=== PATIENT | female | born 1995 | race Caucasian/White ===

== ENCOUNTER → 2019-10-05 15:40 | Outpatient (BNVA) | payer SELFPAY | PROVIDERS: Family Provider Family Medicine; PCP Family Medicine; Visit Provider Nurse Practitioner | DX: J02.9 Acute pharyngitis, unspecified (principal); B37.0 Candidal stomatitis | CPT/HCPCS: 87071; 87880 ==

== ENCOUNTER → 2021-12-07 16:17 | Outpatient (BNVA) | payer SELFPAY | PROVIDERS: Family Provider Family Medicine; Visit Provider Registered Nurse Neonatal Intensive Care | DX: N39.0 Urinary tract infection, site not specified (principal); R39.9 Unspecified symptoms and signs involving the genitourinary system | CPT/HCPCS: 81000; 87086 ==

== ENCOUNTER 2022-01-28 08:31 | Emergency (ER) | payer SELFPAY ==
[2022-01-28 08:58] VITALS: BP 132/82; PULSE 109; RESP 18; TEMP 37; O2SAT 99
[2022-01-28 09:18] VITALS: BP 122/86; PULSE 99; RESP 16; O2SAT 99
--- NOTE | 2022-01-28 09:19 | XR_ITS ---
WS: [id number] Exam: XR chest 1V portable [id number] Date/Time of Exam: 01/28/2022 9:29 AM Reason For Exam: near syncopal episode No priors. Findings: The lungs are clear and fully expanded. Costophrenic angles are sharp. No infiltrates. Bronchovascula r relief appears normal. Cardiac silhouette is unremarkable. Bony elements are intact. XR/XR chest 1V portable [id number] IMPRESSION: Unremarkable chest radiograph.
--- NOTE | 2022-01-28 09:21 | ED_ITS ---
Documented by User: KIRSTIE Suarez 01/29/22 12:40 HPI - General Adult General: Chief complaint: General Medical Stated complaint: BP issues Time Seen by Provider: 01/28/22 08:38 History of Present Illness: Patient is a 26-year-old female comes to the ED wi th near syncopal episode. Episode occurred while at work this morning. She was walking at work and started feeling dizzy, clammy and having heart palpitations. She felt short of breath as well. She checked her pulse at work and it was bouncing around between 100 to 150s. Episode only lasted a couple minutes. Patient states she felt like she was about to pass out, but she did not. She denies any loss of consciousness. Denies any chest pain, nausea/vomiting. Denies any history of anxiety or panic attacks. Here in the ED she says all of her symptoms have resolved and she feels normal. Associated symptoms: Reports palpitations; Deny chest pain, dyspnea, headache(s), nausea, rash or vomiting Review of Systems Const: Denies: fever(s), chills or fatigue Eyes: Denies: change in vision or eye discomfort ENMT: Denies: throat pain, odynophagia, nasal discharge or nasal congestion Card: Reports: palpitations and pre-syncope; Denies: chest pain, edema, swelling of feet/ankles, dyspnea on exertion or orthopnea Resp: Denies: dyspnea, productive cough or non-productive cough GI: Denies: abdominal pain, nausea, vomiting, diarrhea, constipation or hematochezia : Denies: flank pain, dysuria or hematuria Musc: Denies: neck pain, back pain or extremity swelling Skin/Breast: Denies: rash or new lesions Neuro: Denies: headache(s), numbness in extremities or weakness in extremities PFS ED PFSH: Medical History Allergic reaction No pertinent family history Surgical History No pertinent past surgical history Social History Smoking and tobacco status: never smoked Alcohol intake: never Physical Exam Const: COMMON NORMALS: no acute distress, patient oriented x3, healthy appearing and alert GENERAL APPEARANCE: cooperative and comfortable HENMT: COMMON NORMALS: normocephalic HEAD & SCALP: normocephalic MOUTH: Normal oral and palatal mucosa present THROAT: posterior oropharynx normal and uvula midline Eye: COMMON NORMALS: Equal, round and reactive pupils present and conjunctivae normal CONJUNCTIVA: Yes conjunctivae normal PUPIL: Yes Equal, round and reactive pupils present Neck/C-Spine: COMMON NORMALS: supple GENERAL: Yes normal visual inspection Resp: COMMON NORMALS: normal respiratory effort, No retractions, No use of accessory muscles and clear to auscultation bilaterally AUSCULTATION: clear to auscultation bilaterally Cardio: COMMON NORMALS: regular rate, regular rhythm, S1 normal heart sound present, S2 normal heart sound present, No gallops present (Cardio), No clicks present (Cardio), No murmurs present (Cardio) and Peripheral pulses 2+ throughout RATE: regular rate RHYTHM: regular rhythm HEART SOUNDS: S1 normal heart sound present and S2 normal heart sound present PERIPHERAL PULSES: Peripheral pulses 2+ throughout GI: COMMON NORMALS: Normal to inspection, nondistended, normoactive bowel sounds present, Soft to palpation, non-tender and no masses PALPATION: Yes Soft to palpation : COMMON NORMALS: Yes no CVA tenderness BLADDER/KIDNEY EXAM: Yes no CVA tenderness Back/Pelvis: COMMON NORMALS: no CVA tenderness Extremity: COMMON NORMALS: normal to inspection Neuro: COMMON NORMALS: patient oriented x3 SENSORIUM/ORIENTATION: Yes alert GAIT: Yes Normal gait present Skin: GENERAL SKIN EXAM: dry skin Course Vital Signs: Vital signs: Vital Signs Temperature 98.6 F 01/28/22 08:58 Pulse Rate 74 01/28/22 10:45 Respiratory Rate 16 01/28/22 09:18 Blood Pressure 101/60 01/28/22 10:45 Pulse Oximetry 99 01/28/22 09:18 Oxygen Delivery Me thod 01/28/22 08:58 [facility] - General Adult Medical Decision Making Patient is a 26-year-old female comes to the ED with near syncopal episode. Episode occurred while at work this morning. She was walking at work and started feeling dizzy, clammy and having heart palpitations. She felt short of breath as well. She checked her pulse at work and it was bouncing around between 100 to 150s. Episode only lasted a couple minutes. Patient states she felt like she was about to pass out, but she did not. She denies any loss of consciousness. Denies any chest pain, nausea/vomiting. Denies any history of anxiety or panic attacks. Here in the ED she says all of her symptoms have resolved and she feels normal. Vitals are stable. Exam of patient is benign and she appears in no acute distress or pain. CBC and CMP were unremarkable. hCG negative troponin negative. Chest x-ray showed no acute findings. EKG showed normal sinus rhythm with no ST segment elevation depression seen or any other acute findings noted. Patient has not had any similar episodes while here in the ED. She was stable for discharge home and diagnosed with near syncope. She was told to follow-up with her PCP within the next week for reevaluation. Return to ED precautions given. Patient understood and agreed with plan. Lab Data I reviewed the patient's lab results. : 01/28/22 09:30 01/28/22 09:30 Radiology Impressions Chest X-Ray 01/28/22:19 IMPRESSION: Unremarkable chest radiograph. Laboratory Results WBC 8.5 10^3/uL (4.0-10.0) 01/28/22 09:30 RBC 4.51 10^6/uL (4.1-5.3) 01/28/22 09:30 Hgb 13.8 g/dL (11.5-15.3) 01/28/22 09:30 Hct 38.8 % (37.0-47.0) 01/28/22:30 MCV 86.0 fl (81-99) 01/28/22:30 MCH 30.6 pg (28.0-34.0) 01/28/22 09:30 MCHC 35.6 g/dL (30.0-36.0) 01/28/22 09:30 RDW 12.0 % (12.1-15.1) L 01/28/22:30 Plt Count 251 10^3/cmm (130-400) 01/28/22 09:30 MPV 9.7 fL (7.4-10.4) 01/28/22 09:30 Neut % (Auto) 71.7 % 01/28/22 09:30 Lymph % (Auto) 21.1 % 01/28/22 09:30 [place] % (Auto) 5.8 % 01/28/22 09:30 Eos % (Auto) 0.8 % 01/28/22 09:30 Baso % (Auto) 0.2 % 01/28/22:30 Neut # (Auto) 6.11 10^3/uL (1.8-7.7) 01/28/22 09:30 Lymph # (Auto) 1.8 10^3/uL (0.8-4.8) 01/28/22:30 [place] # (Auto) 0.5 10^3/uL (0.2-0.9) 01/28/22:30 Eos # (Auto) 0.1 10^3/uL (0.0-0.8) 01/28/22: Baso # (Auto) 0.0 10^3/uL (0.0-0.1) 01/28/22 09:30 Nucleated RBC % (auto) 0 % 01/28/22: Nucleated RBCs # 0.0 /100WBC 01/28/22:30 Sodium 142 mmol/L (136-145) 01/28/22 09:30 Potassium 3.9 mmol/L (3.5-5.1) 01/28/22 09:30 Chloride 105 mmol/L (98-107) 01/28/22 09:30 Carbon Dioxide 26 mmol/L (22-29) 01/28/22 09:30 Anion Gap 14.9 (5-19) 01/28/22 09:30 BUN 13 mg/dL (6-20) 01/28/22:30 Creatinine 0.9 mg/dL (0.5-0.9) 01/28/22 09:30 GFR Calculation 75.1 mL/min (90-130) L 01/28/22 09:30 Glucose 94 mg/dL (65-115) 01/28/22 09:30 Calculated Osmolality 294 mOsm/kg (285-295) 01/28/22:30 Calcium 9.4 mg/dL (8.5-10.5) 01/28/22 09:30 Total Bilirubin 0.3 mg/dL (0.15-1.2) 01/28/22:30 AST 16 U/L (0-32) 01/28/22:30 ALT 28 U/L (0-33) 01/28/22 09:30 Alkaline Phosphatase 85 U/L (35-105) 01/28/22 09:30 Troponin T Baseline 6 ng/L (0-10) 01/28/22 09:30 Total Protein 7.0 g/dL (6.6-8.7) 01/28/22 09:30 Albumin 4.2 g/dL (3.5-5.2) 01/28/22 09:30 Globulin 2.8 g/dL (1.3-4.6) 01/28/22 09:30 HCG, Qual Negative (Negative) 01/28/22 09:30 Urine Color Yellow (Yellow) 01/28/22 09:25 Urine Appearance Clear (CLEAR) 01/28/22 09:25 Urine pH 6.5 (5-7) 01/28/22 09:25 Ur Specific [place] 1.005 (1.005-1.030) 01/28/22 09:25 Urine Protein Neg (Negative) 01/28/22 09:25 Urine Glucose (UA) Norm (Normal) 01/28/22 09:25 Urine Ketones Negative (Negative) 01/28/22 09:25 Urine Blood Neg (Negative) 01/28/22 09:25 Urine Nitrate Negative (Negative) 01/28/22 09:25 Urine Bilirubin Neg (Negative) 01/28/22 09:25 Prot Sulfosalicylic Acd Negative (Negative) 01/28/22 09:25 Urine Urobilinogen Norm mg/dL (Negative) 01/28/22 09:25 Ur Leukocyte Esterase Negative (Negative) 01/28/22 09:25 EKG Data EKG 1: I personally reviewed and interpreted this EKG as follows: EKG interpretation date: 01/28/22 Interpretation: Normal sinus rhythm, 94 bpm, no ST segment elevation or depression seen. No other acute findings noted. Computer generated interpretation: Chest X-Ray 01/28/22 09:19 IMPRESSION: Unremarkable chest radiograph. [address] [address] Electrocardiograph Report Signed Patient: Sherrie Jose Unit #: [id number] : 1995 Age/Sex: 26 / F ADM Date: 01/28/22 Loc: ER Room/Bed: Attending Dr: Ordering Provider/Ordering MD: Hollis Kelly Date of Service: 01/28/22 Procedure(s): ECG 12 lead EKG Accession Number(s): [id number] Report Number: [id number] ? [facility] ? Test Date:? ? 2022-01-28 Pat Name: ? ? Sherrie Jose ? Department: ? Patient ID: ? [id number] ? Room: ? Gender: ? ? ? Female ? 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 :? 1995 ? Requested By: Hollis Kelly Order Number: [id number]? Reading MD: ? Berto Yaadv M.D. ? Measurements Intervals? [place]? Rate: ? 94 ? P:? 1 [place]: ? 145? QRS:? 34 QRSD: ? 102? T:? 52 QT: ? 346? QTc:? 433? Interpretive Statements SINUS RHYTHM INCOMPLETE RIGHT BUNDLE BRANCH BLOCK? [90+ ms QRS DURATION, TERMINAL R IN V1/V2, 40+ ms S IN I/aVL/V4/V5/V6] No previous ECG available for comparison Electronically Signed On 01-29-2022 0:19:07 CDT by Berto Yadav M.D. [id number] Dictated By: Berto Yadav MD Signed By: Berto Yadav MD Signed Date/Time: 01/29/22 0020 DD/ Discharge Plan Discharge Patient Disposition: Home Clinical Impression: Near syncope Condition: Stable Prescriptions: No Action prednisone 20 mg tablet 60 mg PO DAILY Qty: 15 0RF loratadine 10 mg tablet 10 mg PO DAILY Qty: 30 0RF diphenhydramine HCl 25 mg capsule 25 mg PO TID PRN (Reason: allergy symptoms) Qty: 30 0RF Discharge Orders: Discharge ED (Routine); Ordered 01/28/22 Ordered By: Hollis Kelly Referrals: Prasanth Elder MD [Primary Care Provider] - Discharge Diet: Regular Discharge Activity: Resume usual activity Patient Instructions: Near Syncope (ED) Activity Restrictions/Additional Instructions: Follow-up with medical provider as directed in the next 7 to 10 days for reevaluation. Take medications as prescribed. Return to the ER or your medical provider if condition worsens. Please read and understand discharge instructio ns. Thank you for choosing [facility] for your healthcare needs today. Please realize this is an emergency room and that we are providing you with a medical screening exam and this may not be complete and all inclusive of all the testing and or work up that you may need to determine your ailment or severity of your illness. It is very important that you follow up as instructed or that you return to the Emergency Department should you have concerns or if your condition changes or worsens in any way. Coding Level of Care Code ED Senior Buyer for Chg Fwd Exam Comprehensive Documented by User: Keith Parrish DO 01/30/22 06:22 HPI - General Adult General: Chief complaint: General Medical Stated complaint: BP issues Time Seen by Provider: 10/25/22 08:38 [facility]: Medical History Allergic reaction No pertinent family history Surgical History No pertinent past surgical history Social History Smoking and tobacco status: never smoked Alcohol intake: never Course Vital Signs: Vital signs: Vital Signs Temperature 98.6 F 01/28/22 08:58 Pulse Rate 74 01/28/22 10:45 Respiratory Rate 16 01/28/22 09:18 Blood Pressure 101/60 01/28/22 10:45 Pulse Oximetry 99 01/28/22 09:18 Oxygen Delivery Me thod 01/28/22 08:58 MDM - General Adult Medical Decision Making Patient is a 26-year-old female comes to the ED with near syncopal episode. E pisode occurred while at work this morning. She was walking at work and started feeling dizzy, clammy and having heart palpitations. She felt short of breath as well. She checked her pulse at work and it was bouncing around between 100 to 150s. Episode only lasted a couple minutes. Patient states she felt like she was about to pass out, but she did not. She denies any loss of consciousness. Denies any chest pain, nausea/vomiting. Denies any history of anxiety or panic attacks. Here in the ED she says all of her symptoms have resolved and she feels normal. Vitals are stable. Exam of patient is benign and she appears in no acute distress or pain. CBC and CMP were unremarkable. hCG negative troponin negative. Chest x-ray showed no acute findings. EKG showed normal sinus rhythm with no ST segment elevation depression seen or any other acute findings noted. Patient has not had any similar episodes while here in the ED. She was stable for discharge home and diagnosed with near syncope. She was told to follow-up with her PCP within the next week for reevaluation. Return to ED precautions given. Patient understood and agreed with plan. Chart reviewed and patient discussed with midlevel. Agree with assessment and plan. Lab Data : 01/28/22 09:30 01/28/22 09:30 Radiology Impressions Chest X-Ray 01/28/22 09:19 IMPRESSION: Unremarkable chest radiograph. Laboratory Results WBC 8.5 10^3/uL (4.0-10.0) 01/28/22 09:30 RBC 4.51 10^6/uL (4.1-5.3) 01/28/22 09:30 Hgb 13.8 g/dL (11.5-15.3) 01/28/22 09:30 Hct 38.8 % (37.0-47.0) 01/28/22:30 MCV 86.0 fl (81-99) 01/28/22 09:30 MCH 30.6 pg (28.0-34.0) 01/28/22 09: MCHC 35.6 g/dL (30.0-36.0) 01/28/22 09:30 RDW 12.0 % (12.1-15.1) L 01/28/22 09:30 Plt Count 251 10^3/cmm (130-400) 01/28/22 09:30 MPV 9.7 fL (7.4-10.4) 01/28/22 09:30 Neut % (Auto) 71.7 % 01/28/22 09:30 Lymph % (Auto) 21.1 % 01/28/22 09:30 [place] % (Auto) 5.8 % 01/28/22 09:30 Eos % (Auto) 0.8 % 01/28/22 09:30 Baso % (Auto) 0.2 % 01/28/22 09:30 Neut # (Auto) 6.11 10^3/uL (1.8-7.7) 01/28/22 09:30 Lymph # (Auto) 1.8 10^3/uL (0.8-4.8) 01/28/22 09:30 [place] # (Auto) 0.5 10^3/uL (0.2-0.9) 01/28/22 09:30 Eos # (Auto) 0.1 10^3/uL (0.0-0.8) 01/28/22 09:30 Baso # (Auto) 0.0 10^3/uL (0.0-0.1) 01/28/22 09:30 Nucleated RBC % (auto) 0 % 01/28/22 09:30 Nucleated RBCs # 0.0 /100WBC 01/28/22 09:30 Sodium 142 mmol/L (136-145) 01/28/22 09:30 Potassium 3.9 mmol/L (3.5-5.1) 01/28/22 09:30 Chloride 105 mmol/L (98-107) 01/28/22 09:30 Carbon Dioxide 26 mmol/L (22-29) 01/28/22:30 Anion Gap 14.9 (5-19) 01/28/22:30 BUN 13 mg/dL (6-20) 01/28/22 09:30 Creatinine 0.9 mg/dL (0.5-0.9) 01/28/22 09:30 GFR Calculation 75.1 mL/min (90-130) L 01/28/22:30 Glucose 94 mg/dL (65-115) 01/28/22 09:30 Calculated Osmolality 294 mOsm/kg (285-295) 01/28/22:30 Calcium 9.4 mg/dL (8.5-10.5) 01/28/22 09:30 Total Bilirubin 0.3 mg/dL (0.15-1.2) 01/28/22 09:30 AST 16 U/L (0-32) 01/28/22 09:30 ALT 28 U/L (0-33) 01/28/22 09:30 Alkaline Phosphatase 85 U/L (35-105) 01/28/22 09:30 Troponin T Baseline 6 ng/L (0-10) 01/28/22 09:30 Total Protein 7.0 g/dL (6.6-8.7) 01/28/22 09:30 Albumin 4.2 g/dL (3.5-5.2) 01/28/22 09:30 Globulin 2.8 g/dL (1.3-4.6) 01/28/22 09:30 HCG, Qual Negative (Negative) 01/28/22:30 Urine Color Yellow (Yellow) 01/28/22:25 Urine Appearance Clear (CLEAR) 01/28/22:25 Urine pH 6.5 (5-7) 01/28/22:25 Ur Specific [place] 1.005 (1.005-1.030) 01/28/22:25 Urine Protein Neg (Negative) 01/28/22 09:25 Urine Glucose (UA) Norm (Normal) 01/28/22 09:25 Urine Ketones Negative (Negative) 01/28/22 09:25 Urine Blood Neg (Negative) 01/28/22 09:25 Urine Nitrate Negative (Negative) 01/28/22 09:25 Urine Bilirubin Neg (Negative) 01/28/22 09:25 Prot Sulfosalicylic Acd Negative (Negative) 01/28/22 09:25 Urine Urobilinogen Norm mg/dL (Negative) 01/28/22 09:25 Ur Leukocyte Esterase Negative (Negative) 01/28/22 09:25 EKG Data EKG 1: Computer generated interpretation: Chest X-Ray 01/28/22 09:19 IMPRESSION: Unremarkable chest radiograph. Discharge Plan Discharge Patient Disposition: Home Clinical Impression: Near syncope Condition: Stable Prescriptions: No Action prednisone 20 mg tablet 60 mg PO DAILY Qty: 15 0RF loratadine 10 mg tablet 10 mg PO DAILY Qty: 30 0RF diphenhydramine HCl 25 mg capsule 25 mg PO TID PRN (Reason: allergy symptoms) Qty: 30 0RF Discharge Orders: Discharge ED (Routine); Ordered 01/28/22 Ordered By: Hollis Kelly Referrals: Prasanth Elder MD [Primary Care Provider] - Discharge Diet: Regular Discharge Activity: Resume usual activity Patient Instructions: Near Syncope (ED) Activity Restrictions/Additional Instructions: Follow-up with medical provider as directed in the next 7 to 10 days for reevaluation. Take medications as prescribed. Return to the ER or your medical provider if condition worsens. Please read and understand discharge instructions. Thank you for choosing [facility] for your healthcare needs today. Please realize this is an emergency room and that we are providing you with a m edical screening exam and this may not be complete and all inclusive of all the testing and or work up that you may need to determine your ailment or severity of your illness. It is very important that you follow up as instructed or that you return to the Emergency Department should you have concerns or if your condition changes or worsens in any way. Coding Level of Care Code ED Senior Buyer for Augie Fwd Exam Comprehensive
--- NOTE | 2022-01-28 09:36 | ECG_ITS ---
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 Measurements Intervals [place] Rate: 94 P: 1 AR: 145 QRS: 34 QRSD: 102 T: 52 QT: 346 QTc: 433 Interpretive Statements SINUS RHYTHM INCOMPLETE RIGHT BUNDLE BRANCH BLOCK [90+ ms QRS DURATION, TERMINAL R IN V1/V2, 40+ ms S IN I/aVL/V4/V5/V6] No previous ECG available for comparison Electronically Signed On 01-29-2022 0:19:07 CDT by Berto Yadav M.D. [email or web address]/[id number]
[2022-01-28 09:49] LABS: Basophils % 0.2 %; Eosinophils # 0.1 10^3/uL (0.0-0.8); Eosinophils % 0.8 %; Hematocrit 38.8 % (37.0-47.0); Hemoglobin 13.8 g/dL (11.5-15.3); Lymphocytes # 1.8 10^3/uL (0.8-4.8); Lymphocytes % 21.1 %; Mean Corpuscular HGB Conc 35.6 g/dL (30.0-36.0); Mean Corpuscular Hemoglobin 30.6 pg (28.0-34.0); Mean Platelet Volume 9.7 fL (7.4-10.4); Monocytes # 0.5 10^3/uL (0.2-0.9); Monocytes % 5.8 %; Neutrophils # 6.11 10^3/uL (1.8-7.7); Neutrophils % 71.7 %; Nucleated Red Blood Cells % 0 %; Platelet Count 251 10^3/cmm (130-400); Red Blood Count 4.51 10^6/uL (4.1-5.3); White Blood Count 8.5 10^3/uL (4.0-10.0)
[2022-01-28 09:50] LABS: Add Urine Microscopic? NO; Charge for UA Resulting for Rev
[2022-01-28 09:54] LABS: Specific Gravity, Urine 1.005 (1.005-1.030); Urine Appearance Clear (CLEAR); Urine Color Yellow (Yellow); pH Urine 6.5 (5-7)
[2022-01-28 09:55] LABS: Bilirubin Urine Neg (Negative); Blood Urine Neg (Negative); Glucose Urine UA Norm (Normal); Ketones Urine Negative (Negative); Leukocyte Esterase Urine Negative (Negative); Nitrate Urine Negative (Negative); Protein Urine Neg (Negative); Sulfosalicylic Acid Urine Negative (Negative); Urobilinogen Urine Norm (Negative)
[2022-01-28 10:03] LABS: HCG, Serum Qual Negative (Negative)
[2022-01-28 10:11] LABS: Troponin(5th) Baseline 6 ng/L (0-10)
[2022-01-28 10:17] LABS: Alanine Aminotransferase 28 U/L (0-33); Albumin Level 4.2 g/dL (3.5-5.2); Alkaline Phosphatase 85 U/L (35-105); Anion Gap 14.9 (5-19); Aspartate Amino Transferase 16 U/L (0-32); Blood Urea Nitrogen 13 mg/dL (6-20); Calcium 9.4 mg/dL (8.5-10.5); Carbon Dioxide 26 mmol/L (22-29); Chloride 105 mmol/L (98-107); Globulin 2.8 g/dL (1.3-4.6); Glomerular Filtration Rate 75.1 mL/min (90-130); Glucose 94 mg/dL (65-115); Osmolality Calculated 294 mOsm/kg (285-295); Potassium 3.9 mmol/L (3.5-5.1); Sodium 142 mmol/L (136-145); Total Bilirubin 0.3 mg/dL (0.15-1.2)
[2022-01-28 10:45] VITALS: BP 101/60; PULSE 74
== END 2022-01-28 10:46 | disposition home or self-care (01) ==
PROVIDERS: Emergency Provider Physician Assistant; PCP Family Medicine
DX: R55 Syncope and collapse (principal)
CPT/HCPCS: 36415; 71045; 80053; 81003; 84484; 84703; 85025; 93005; 99285

== ENCOUNTER 2023-09-30 19:56 | Emergency (ER) | payer OTHER, SELFPAY ==
--- NOTE | 2023-09-30 19:59 | ECG_ITS ---
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 Measurements Intervals [place] Rate: 79 P: 78 VT: 155 QRS: 19 QRSD: 88 T: 67 QT: 374 QTc: 430 Interpretive Statements SINUS RHYTHM WITH SINUS ARRHYTHMIA POSSIBLE RIGHT VENTRICULAR CONDUCTION DELAY [RSR (QR) IN V1/V2] Compared to ECG 01/28/2022 09:36:57 Incomplete right bundle-branch block no longer present Electronically Signed On 10-01-2023 0:09:33 CDT by Berto Yadav M.D. [id number] f
[2023-09-30 20:08] VITALS: BP 110/71; PULSE 69; RESP 20; TEMP 36.4; O2SAT 98
--- NOTE | 2023-09-30 20:16 | XRR_ITS ---
PROCEDURE INFORMATION: Exam: XR Chest Exam date and time: 09/30/2023 9:22 PM Age: 28 years old Clinical indication: Other: Dizzy; Chest wall pain; Additional info: Chest pain TECHNIQUE: Imaging protocol: Radiologic exam of the chest. Views: 1 view. COMPARISON: CR XR chest 1V portable [id number] 01/28/2022 9:39 AM FINDINGS: Lungs: Unremarkable. No consolidation. Pleural spaces: Unremarkable. No pleural effusion. No pneumothorax. Heart/Mediastinum: Unremarkable. No cardiomegaly. Bones/joints: Unremarkable. Soft tissues: Unilateral or bilateral nipple metallic jewelry with or without metallic artifact. XR/XR chest 1V portable [id number] IMPRESSION: No acute findings.
== END 2023-09-30 22:33 | disposition left against medical advice (07) ==
PROVIDERS: Emergency Provider Family Medicine; PCP Family Medicine
DX: Z53.21 Procedure and treatment not carried out due to patient leaving prior to being seen by health care provider (principal)
CPT/HCPCS: 71045; 93005